=== PATIENT | female | born 1960 | race Caucasian/White ===

== ENCOUNTER 2019-04-10 09:02 | Observation (INO) | payer OTHER ==
[~2019-04-10] VITALS: Ht 165.1 cm; Wt 87.0 kg
[2019-04-10] MEDS ORDERED: ASPIRIN 81 MG TAB PO STA (09:15)
[2019-04-10] MEDS ORDERED: NITROGLYCERIN 2% 1 GM OINT PKT TD STA (09:15)
[2019-04-10] MEDS ORDERED: NITROGLYCERIN (SL) 0.4 MG TAB SL PRN ×2 (09:30→15:00)
[2019-04-10] MEDS ORDERED: GABA100C14 PO (10:12)
[2019-04-10] MEDS ORDERED: MELO-174 PO (10:12)
[2019-04-10] MEDS ORDERED: OMEP20CA16 PO (10:13)
[2019-04-10] MEDS ORDERED: DOCU250C58 PO (10:13)
[2019-04-10] MEDS ORDERED: LOSA1TAB22 PO (10:14)
[2019-04-10] MEDS ORDERED: METF500T24 PO (10:14)
[2019-04-10] MEDS ORDERED: LEVO50TA7 PO (10:14)
[2019-04-10] MEDS ORDERED: ATOR40TA68 PO (10:15)
[2019-04-10] MEDS ORDERED: CALC-133 PO (10:16)
[2019-04-10] MEDS ORDERED: ONDANSETRON 4 MG INJ IV PRN (12:00)
[2019-04-10] MEDS ORDERED: ACETAMINOPHEN 325 MG TAB PO PRN ×2 (12:00→15:00)
[2019-04-10 13:30] VITALS: BP 123/67; PULSE 75; RESP 20
[2019-04-10 13:54] VITALS: PULSE 72
--- NOTE | 2019-04-10 14:13 | ERD ---
ER Documentation Chief Complaint Chief Complaint "heart pain" since last night HPI Patient is a 59-year-old female with hypertension and diabetes who presents with "heart pain". Please note an Kittitian cigarette package examiner was used for the entire history and physical exam. The patient said that she started last night with chest pain at 11 PM. It was a sharp pain around her heart area she says. She tried valerian root. The pain comes and goes. Now she describes it as a burning pain. Upon review of old medical records this is the patient's first visit to the emergency department. ROS All systems reviewed and are negative except as per history of present illness. Medications Home Meds Reported Medications Calcium Carbonate/Vitamin D3 (Oyster Shell Calcium +D Tablet) 1 Each Tablet, 1 EACH PO BID, TAB 04/10/19 Atorvastatin* (Atorvastatin*) 40 Mg Tablet, 40 MG PO QHS, #30 TAB 04/10/19 Losartan-Hydrochlorothiazide (Losartan-HCTZ) 50-12.5 Mg Tab, 1 TAB PO DAILY, TAB 04/10/19 Metformin Hcl* (Metformin Hcl*) 500 Mg Tablet, 500 MG PO WITH BREAKFAST, #30 TAB 04/10/19 Levothyroxine Sodium* (Levothyroxine Sodium*) 50 Mcg Tablet, 50 MCG PO BEFORE BREAKFAST, #30 TAB 04/10/19 Docusate Sodium* (Colace*) 250 Mg Capsule, 250 MG PO DAILY, #30 CAP 04/10/19 Omeprazole* (Omeprazole*) 20 Mg Capsule.dr, 20 MG PO DAILY, #30 CAP 04/10/19 Meloxicam* (Mobic*) 7.5 Mg Tab, 7.5 MG PO DAILY, #30 TAB 04/10/19 Gabapentin* (Gabapentin*) 100 Mg Capsule, 100 MG PO DAILY, #90 CAP 04/10/19 Allergies Allergies: Coded Allergies: No Known Allergy (Unverified , 04/10/19) PMhx/Soc Hx Cardiac Disorders: Yes (HTN) Hx Miscellaneous Medical Probl: Yes (DM) Hx Alcohol Use: No Hx Substance Use: No Hx Tobacco Use: No Smoking Status: Never smoker FmHx Family History: coronary disease Physical Exam Vitals Vital Signs Date Temp Pulse Resp B/P (MAP) Pulse Ox O2 O2 Flow FiO2 Time Delivery Rate 04/10/19 72 14 122/82 95 Room Air 11:00 (95) 6/2/19 73 16 133/82 99 Room Air 10:00 (99) 04/10/19 98.1 75 15 126/86 100 Room Air 09:20 (99) 04/10/19 97.4 72 18 142/64 99 09:08 (90) Physical Exam Const: No acute distress Head: Atraumatic Eyes: Normal Conjunctiva ENT: Normal External Ears, Nose and Mouth. Neck: Full range of motion. No meningismus. Resp: Clear to auscultation bilaterally Cardio: Regular rate and rhythm, no murmurs Abd: Soft, non tender, non distended. Normal bowel sounds Skin: No petechiae or rashes Back: No midline or flank tenderness Ext: No cyanosis, or edema Neur: Awake and alert Psych: Normal Mood and Affect Result Diagram: 04/10/19 0945 04/10/19 0945 Results 24 hrs Laboratory Tests Test 04/10/19 09:45 White Blood Count 5.6 10^3/ul Red Blood Count 4.67 10^6/ul Hemoglobin 12.8 g/dl Hematocrit 39.6 % Mean Corpuscular Volume 84.8 fl Mean Corpuscular Hemoglobin 27.4 pg Mean Corpuscular Hemoglobin Concent 32.3 g/dl Red Cell Distribution Width 12.7 % Platelet Count 243 10^3/UL Mean Platelet Volume 10.0 fl Immature Granulocytes % 0.200 % Neutrophils % 47.1 % Lymphocytes % 44.4 % Monocytes % 6.1 % Eosinophils % 1.8 % Basophils % 0.4 % Nucleated Red Blood Cells % 0.0 /100WBC Immature Granulocytes # 0.010 10^3/ul Neutrophils # 2.6 10^3/ul Lymphocytes # 2.5 10^3/ul Monocytes # 0.3 10^3/ul Eosinophils # 0.1 10^3/ul Basophils # 0.0 10^3/ul Nucleated Red Blood Cells # 0.0 10^3/ul Sodium Level 141 mmol/L Potassium Level 4.6 mmol/L Chloride Level 105 mmol/L Carbon Dioxide Level 27 mmol/L Anion Gap 9 Blood Urea Nitrogen 10 mg/dl Creatinine 0.65 mg/dl Est Glomerular Filtrat Rate mL/min > 60 mL/min Glucose Level 112 mg/dl Calcium Level 9.6 mg/dl Troponin I < 0.012 ng/ml Current Medications Medications Dose Sig/Kiersten Start Time Status Last (Trade) Ordered Route PRN Stop Time Admin Dose Reason Admin Aspirin 162 mg ONCE STAT 04/10/19 DC 04/10/19 (Aspirin) PO 09:15 04/10/19 09:30 09:17 1 inch ONCE STAT 04/10/19 DC 04/10/19 Nitroglycerin TD 09:15 04/10/19 09:31 09:17 (Nitroglyceri n 2% Oint) 1 tab Q5M UP TO 3 04/10/19 Nitroglycerin DOSES PRN 09:30 SL .CHEST (Nitroglyceri PAIN n (Sl Tab) 0.4 Mg) Procedures/MDM EKG read by me: Rate/Rhythm: Regular rate and rhythm at a normal rate Intervals: Normal Impression: No evidence of ischemia or arrhythmia Chest x-ray read by radiology. Patient is a 59-year-old female with hypertension and diabetes who presents with chest pain. I am concerned for possible acute coronary syndrome. I doubt pneumonia, pneumothorax, pulmonary embolism, or aortic dissection. The patient will be admitted to the care of Dr. Rothman given her insurance. The patient was given aspirin and nitroglycerin empirically. Departure Diagnosis: Primary Impression: Chest pain Chest pain type: unspecified Qualified Codes: R07.9 - Chest pain, unspecified Condition: Stable AYLIN LEDBETTER MD Apr 10, 2019 14:13
[2019-04-10 15:00] VITALS: Ht 165.1 cm; Wt 87.0 kg
[2019-04-10] MEDS ORDERED: NACL 0.9% 3 ML SYG IV SCH (15:00)
[2019-04-10] MEDS ORDERED: ONDANSETRON 4 MG TAB PO PRN (15:00)
--- NOTE | 2019-04-10 15:25 | HP ---
Date/Time of Note Date/Time of Note DATE: 04/10/19 TIME: 15:02 Assessment/Plan VTE Prophylaxis SCD applied (from Nsg): Yes Pharmacological prophylaxis: LMWH Lines/Catheters IV Catheter Type (from Nrsg): Saline Lock Assessment/Plan Assessment/Plan 1. 59yo woman with diabetes who had epigastric pain the last ten days, and abrupt onset of sharp left chest pain last night. Now pain-free. She had moderate dyspnea last night, "unable to speak." On exam, she had moderate chest wall tenderness over the left chondrosternal joints. But no squeeze tenderness of the ribcage. EKG showed NSR with no ischemia. Negative troponin. Likely a combination of acid reflux and costochondritis. But she has chest wall tenderness consistent with costochondritis. Nonetheless, being post-menopausal and with her cardiac factors, I think proceeding to rule out myocardial ischemia is very important 2. Hypertension 3. Diabetes 4. Frequent epistaxis 5. Frequent headaches 6. Urinary frequency 7. Unexplained low back pain * Admit to observation telemetry * Serial troponins * Check D-dimer/ESR * Famotidine for possible GERD and GI prophylaxis * Continue meloxicam for possible costochondritis * Continue diabetes meds, and implement qAC and qHS Accuchecks * Diabetic diet; NPO after midnight except for medications * A1c, lipids, TSH pending * Cherelle scan ordered for tomorrow morning * LMWH heparin for DVT prevention * Disposition: home with her family once evaluation is done Raquel Rothman MD PhD [facility] [phone] Result Diagram: 04/10/19 0945 04/10/19 0945 Results 24hrs Laboratory Tests Test 04/10/19 09:45 04/10/19 13:36 White Blood Count 5.6 Red Blood Count 4.67 Hemoglobin 12.8 Hematocrit 39.6 Mean Corpuscular Volume 84.8 Mean Corpuscular Hemoglobin 27.4 L Mean Corpuscular Hemoglobin Concent 32.3 Red Cell Distribution Width 12.7 Platelet Count 243 Mean Platelet Volume 10.0 Immature Granulocytes % 0.200 Neutrophils % 47.1 Lymphocytes % 44.4 Monocytes % 6.1 Eosinophils % 1.8 Basophils % 0.4 Nucleated Red Blood Cells % 0.0 Immature Granulocytes # 0.010 Neutrophils # 2.6 Lymphocytes # 2.5 Monocytes # 0.3 Eosinophils # 0.1 Basophils # 0.0 Nucleated Red Blood Cells # 0.0 Sodium Level 141 Potassium Level 4.6 Chloride Level 105 Carbon Dioxide Level 27 Anion Gap 9 Blood Urea Nitrogen 10 Creatinine 0.65 Est Glomerular Filtrat Rate mL/min > 60 Glucose Level 112 Calcium Level 9.6 Troponin I < 0.012 Bedside Glucose 95 HPI/ROS Admit Date/Time Admit Date/Time Apr 10, 2019 at 11:51 Hx of Present Illness cc: Chest pain HPI: 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 I had the benefit of Sammarinese translation by one of our nurses. The patient has diabetes and hypertension, but no previous cardiac disease history. Ten days ago she began having burning in the epigastric area, unrelated to eating. About midnight last night she developed sharp chest pain in the left chest. She tried taking some valerian root, an Sammarinese remedy for chest pain, but without benefit. She was "unable to speak," feeling short of breath but without nausea or radiation to arms or face. She had higher blood pressure than usual, and this brought on a predictable headache. Medical history: 1. Hysterectomy 2. Right oophorectomy 3. Renal stent 4. Hypertension 5. Hypothyroidism 6. Asthma ROS No diplopia or visual change, weakness, numbness (only occasionally in her feet), falling, loose stool or constipation, dysuria or urethritis symptoms. She does have very frequent urination, sometimes every 15 minutes. Occasional palpitations, with either rapid or slow heart beat. She has had episdoes of dizziness, and even passing out. Her stomach pains are crampy, typically lasting only about two minutes. She has had no respiratory symptoms the last ten days suggestive of infection (eg. cough, fever). She does have frequent low back pain. Frequent nosebleeds. PMH/Family/Social Past Medical History Medications Current Medications Nitroglycerin (Nitroglycerin (Sl Tab) 0.4 Mg) 1 tab Q5M UP TO 3 DOSES PRN SL .CHEST PAIN; Start 04/10/19 at 09:30 Ondansetron HCl (Zofran Inj) 4 mg ER BRIDGE PRN IV NAUSEA/VOMITING; Start 04/10/19 at 12:00; Stop 04/11/19 at 11:59 Acetaminophen (Tylenol Tab) 650 mg ER BRIDGE PRN PO .MILD PAIN 1-3 OR TEMP; Start 04/10/19 at 12:00; Stop 04/11/19 at 11:59 Atorvastatin Calcium (Lipitor) 40 mg QHS PO ; Start 04/10/19 at 21:00; Status UNV Calcium/Vitamin D (Oyster Shell/ Vit-D (500/200)) 1 tab BID PO ; Start 04/10/19 at 15:00; Status UNV Docusate Sodium (Colace) 250 mg DAILY PO ; Start 04/10/19 at 15:00; Status UNV Gabapentin (Neurontin) 100 mg DAILY PO ; Start 04/10/19 at 15:00; Status UNV Levothyroxine Sodium (Synthroid) 50 mcg BEFORE BREAKFAST PO ; Start 04/11/19 at 07:00; Status UNV Meloxicam (Mobic) 7.5 mg DAILY PO ; Start 04/10/19 at 15:00; Status UNV Metformin HCl (Glucophage) 500 mg WITH BREAKFAST PO ; Start 04/11/19 at 08:00; Status UNV Miscellaneous Information 1 tab DAILY PO ; Start 04/10/19 at 15:00; Status UNV Diagnostic Test (Pha) (Accu-Chek) 1 ea AC MEALS AND BEDTIME XX ; Start 04/10/19 at 17:30; Status UNV IV Flush (NS 3 ml) 3 ml PER PROTOCOL IV ; Start 04/10/19 at 15:00; Status UNV Ondansetron HCl (Zofran Tab) 4 mg Q6H PRN PO NAUSEA/VOMITING; Start 04/10/19 at 15:00; Status UNV Aspirin (Aspirin) 81 mg DAILY PO ; Start 04/11/19 at 09:00; Status UNV Nitroglycerin (Nitroglycerin (Sl Tab) 0.4 Mg) 1 tab Q5M PRN SL .CHEST PAIN; Start 04/10/19 at 15:00; Status UNV Acetaminophen (Tylenol Tab) 650 mg Q6H PRN PO .PAIN 1-3 OR TEMP; Start 04/10/19 at 15:00; Status UNV Famotidine (Pepcid) 20 mg Q12 PO ; Start 04/10/19 at 15:00; Status UNV Enoxaparin Sodium (Lovenox) 40 mg DAILY SC ; Start 04/10/19 at 15:00; Status UNV Coded Allergies: No Known Allergy (Unverified , 04/10/19) Family History Significant Family History: heart disease (Mother in her 80s of heart disease; none in her siblings or children) Social History Lives with her , son, and [id number] Alcohol Use: none Smoking Status: Never smoker Exam/Review of Systems Vital Signs Vitals Vital Signs Date Temp Pulse Resp B/P (MAP) Pulse Ox O2 O2 Flow FiO2 Time Delivery Rate 04/10/19 72 13:54 04/10/19 97.6 20 123/67 94 Room Air 13:30 (85) Exam Exam Gen: Mildly anxious, but breathing comfortably on room air HEENT: PERRL, EOMI, no scleral icterus or conjunctivitis Neck: No JVD, thyomegaly, or adenopathy CVS: Regular rhythm, normal rate, no murmur, good peripheral perfusion, no edema Chest: Clear bilaterally. Moderate tenderness over the left chondrosternal joints Abd: Large, soft, non-tender, no HSM MSk: No arthritis or cyanosis Neuro: Alert, oriented, CN/motor intact. Mildly decreased light-touch sensation decreased on the feet. 1+ symmetric patellar reflexes Skin: No rash SAE ROTHMAN M.D. Apr 10, 2019 15:13
[2019-04-10] MEDS ORDERED: LOSARTAN 50 MG TAB PO SCH (15:30)
[2019-04-10 15:35] VITALS: BP 110/64; PULSE 80; RESP 20
[2019-04-10] MEDS: CALCIUM/VITAMIN D (500/200) TAB PO SCH ×2 (15:49→21:47)
[2019-04-10] MEDS: DOCUSATE SODIUM 250 MG CAP PO SCH (15:49)
[2019-04-10] MEDS: MELOXICAM 7.5 MG TAB PO SCH (15:49)
[2019-04-10] MEDS: FAMOTIDINE 20 MG TAB PO SCH ×2 (15:50→21:39)
[2019-04-10] MEDS: GABAPENTIN 100 MG CAP PO SCH (15:51)
[2019-04-10] MEDS: LOSARTAN 50 MG TAB PO SCH (15:52)
[2019-04-10] MEDS: ENOXAPARIN 40 MG/0.4 ML SYG SC SCH (15:57)
[2019-04-10 16:08] VITALS: PULSE 84
[2019-04-10] MEDS: ACCU-CHEK XX SCH ×2 (17:30→21:48)
[2019-04-10 20:00] VITALS: PULSE 77
[2019-04-10 20:37] VITALS: BP 122/64; PULSE 78; RESP 18
[2019-04-10] MEDS ORDERED: ATORVASTATIN 40 MG TAB PO SCH (21:00)
[2019-04-11] VITALS (11 sets, daily range): BP systolic 112–125; BP diastolic 66–73; PULSE 8–88; RESP 16–20
[2019-04-11] MEDS: ACCU-CHEK XX SCH ×3 (06:57→16:50)
[2019-04-11] MEDS ORDERED: LEVOTHYROXINE 50 MCG TAB PO SCH (07:00)
[2019-04-11] MEDS ORDERED: metFORMIN 500 MG TAB PO SCH (08:00)
[2019-04-11] MEDS: MELOXICAM 7.5 MG TAB PO SCH (08:30)
[2019-04-11] MEDS: CALCIUM/VITAMIN D (500/200) TAB PO SCH (08:30)
[2019-04-11] MEDS: LOSARTAN 50 MG TAB PO SCH (08:30)
[2019-04-11] MEDS: DOCUSATE SODIUM 250 MG CAP PO SCH (08:31)
[2019-04-11] MEDS: GABAPENTIN 100 MG CAP PO SCH (08:31)
[2019-04-11] MEDS: FAMOTIDINE 20 MG TAB PO SCH (08:31)
[2019-04-11] MEDS: ENOXAPARIN 40 MG/0.4 ML SYG SC SCH (08:32)
[2019-04-11] MEDS ORDERED: HYDROCHLOROTHIAZIDE 25 MG TAB PO SCH (09:00)
[2019-04-11] MEDS ORDERED: ASPIRIN 81 MG TAB PO SCH (09:00)
[2019-04-11] MEDS ORDERED: REGADENOSON 0.4 MG/5 ML SYG ONE ×2 (12:26→12:43)
--- NOTE | 2019-04-11 13:34 | RADRPT ---
Echocardiogram Report Patient Name: Adela JAY ID: [id number] : 1960 (59y 2m)Study Date: 04/11/2019 11:51:59 AM Gender: FAccession #: [id number] Tech: EddiePerfecto Evangelista [facility] Location: [facility] Ref.Physician: DARYL GUTIERREZ Height(Cm): BSA: Weight(Kg): Quality: AdequateOrder Physician: DARYL GUTIERREZ Account #: Procedures: Echocardiographic Report: Transthoracic echocardiogram with complete 2D, M-Mode, and doppler examination. Indications: Chest Pain. Measurements: 2D/M Mode Doppler Measurement Value Normal Range Measurement Value Normal Range LVIDd 2D 3.5 [ 3.8 - 5.2 ] cm AV Peak Jeffry 0.9 [ 100.0 - 170.0 ] cm/sec LVIDs 2D 2.1 [ 2.2 - 3.5 ] cm AV Peak PG 4.0 [ 2.0 - 9.0 ] mmHg LVPWd 2D 1.0 [ 0.6 - 0.9 ] cm LVOT Peak Jeffry 0.9 [ 70.0 - 110.0 ] cm/sec IVSd 2D 1.2 [ 0.6 - 0.9 ] cm LVOT Peak PG 4.0 [ 2.0 - 6.0 ] mmHg AoR Diam 2D 2.8 [ 2.3 - 3.1 ] cm MV E Peak Jeffry 0.5 [ 60.0 - 130.0 ] cm/sec EDV 2D 49.8 [ 46.0 - 106.0 ] ml MV A Peak Jeffry 0.6 [ 100.0 - 120.0 ] cm/sec ESV 2D 13.7 [ 14.0 - 42.0 ] ml MV E/A 0.8 [ 0.8 - 1.5 ] ratio EF 2D 72.5 [ 54.0 - 74.0 ] percent MV Decel Time 180 [ 104 - 258 ] msec LA Dimen 2D 2.9 [ 2.7 - 3.8 ] cm Lat E` Jeffry 0.1 [ 10.0 - 15.0 ] cm/sec Lateral E/E` 9.1 [ 1.0 - 2.0 ] ratio MV E/A 0.8 [ 0.8 - 1.5 ] ratio Findings: Left Ventricle: Normal left ventricular systolic function. Normal left ventricular cavity size. Mild concentric left ventricular hypertrophy. Ejection fraction is visually estimated at 65 %. Tissue Doppler/Mitral Doppler indices are consistent with impaired relaxation (Stage I diastolic dysfunction). Right Ventricle: Normal right ventricular size. Normal right ventricular systolic function. Left Atrium: The left atrium is normal in size. Right Atrium: The right atrium is normal in size. Mitral Valve: Normal appearance and function of the mitral valve with trace physiologic regurgitation. Aortic Valve: Normal appearance of the aortic valve. No significant aortic stenosis or insufficiency. Tricuspid Valve: Normal appearance and function of the tricuspid valve with trace physiologic regurgitation. Pulmonic Valve: Normal pulmonic valve appearance. Pericardium: Normal pericardium with no significant pericardial effusion. Aorta: Normal aortic root. IVC: Normal size and normal respiratory collapse consistent with normal right atrial pressure. Conclusions: Normal left ventricular systolic function. Normal left ventricular cavity size. Mild concentric left ventricular hypertrophy. Ejection fraction is visually estimated at 65 %. Tissue Doppler/Mitral Doppler indices are consistent with impaired relaxation (Stage I diastolic dysfunction). Normal right ventricular size. Normal right ventricular systolic function. The left atrium is normal in size. The right atrium is normal in size. No significant valvular stenosis or regurgitation seen. Normal pericardium with no significant pericardial effusion. Electronically Signed By: Daryl Gutierrez 2019-04-11 13:33:41 PDT
--- NOTE | 2019-04-11 15:15 | CONS ---
Assessment/Plan Assessment/Plan Hospital Course (Demo Recall) Chest pain Shortness of breath Preserved left ventricular ejection fraction Hypertension Diabetes -Patient with reducible chest discomfort. Patient also with shortness of breath which has been exertional times over the past 1 to 2 months. -Serial cardiac enzymes are negative, ECG with no significant ischemic abnormalities, echocardiogram with preserved left ventricular ejection fraction with no significant valvular abnormalities -Patient plan for nuclear cardiac perfusion study today Consultation Date/Type/Reason Admit Date/Time Apr 10, 2019 at 11:51 Type of Consult Cardiology Reason for Consultation Chest pain Date/Time of Note DATE: 04/11/19 TIME: 15:12 Hx of Present Illness This is a 59-year-old female with past medical history of hypertension, borderline diabetes who presents with chest pain and shortness of breath. Chest pain is worse with palpation of the chest wall and movement of her arms. Patient also with shortness of breath off and on over the past 1 to 2 months. Symptoms at times are worse with exertion at times at rest. Denies any dizzines s or lightheadedness. Symptoms have since improved since her admission to the hospital. 12 point review of systems was performed with all pertinent positives and negatives mentioned above and all else is negative Past Medical History Medical History: diabetes, high cholesterol, hypertension Home Meds Reported Medications Calcium Carbonate/Vitamin D3 (Oyster Shell Calcium +D Tablet) 1 Each Tablet, 1 EACH PO BID, TAB 04/10/19 Atorvastatin* (Atorvastatin*) 40 Mg Tablet, 40 MG PO QHS, #30 TAB 04/10/19 Losartan-Hydrochlorothiazide (Losartan-HCTZ) 50-12.5 Mg Tab, 1 TAB PO DAILY, TAB 04/10/19 Metformin Hcl* (Metformin Hcl*) 500 Mg Tablet, 500 MG PO WITH BREAKFAST, #30 TAB 04/10/19 Levothyroxine Sodium* (Levothyroxine Sodium*) 50 Mcg Tablet, 50 MCG PO BEFORE BREAKFAST, #30 TAB 04/10/19 Docusate Sodium* (Colace*) 250 Mg Capsule, 250 MG PO DAILY, #30 CAP 04/10/19 Omeprazole* (Omeprazole*) 20 Mg Capsule.dr, 20 MG PO DAILY, #30 CAP 04/10/19 Meloxicam* (Mobic*) 7.5 Mg Tab, 7.5 MG PO DAILY, #30 TAB 04/10/19 Gabapentin* (Gabapentin*) 100 Mg Capsule, 100 MG PO DAILY, #90 CAP 04/10/19 Medications Current Medications Atorvastatin Calcium (Lipitor) 40 mg QHS PO Last administered on 04/10/19 21:39; Admin Dose 40 MG; Start 04/10/19 at 21:00 Calcium/Vitamin D (Oyster Shell/ Vit-D (500/200)) 1 tab BID PO Last administered on 04/11/19 08:30; Admin Dose 1 TAB; Start 04/10/19 at 15:00 Docusate Sodium (Colace) 250 mg DAILY PO Last administered on 04/11/19 08:31; Admin Dose 250 MG; Start 04/10/19 at 15:00 Gabapentin (Neurontin) 100 mg DAILY PO Last administered on 04/11/19 08:31; Admin Dose 100 MG; Start 04/10/19 at 15:00 Levothyroxine Sodium (Synthroid) 50 mcg BEFORE BREAKFAST PO Last administered on 04/11/19 06:51; Admin Dose 50 MCG; Start 04/11/19 at 07:00 Meloxicam (Mobic) 7.5 mg DAILY PO Last administered on 04/11/19 08:30; Admin D ose 7.5 MG; Start 04/10/19 at 15:00 Metformin HCl (Glucophage) 500 mg WITH BREAKFAST PO ; Start 04/11/19 at 08:00 Diagnostic Test (Pha) (Accu-Chek) 1 ea AC MEALS AND BEDTIME XX Last administered on 04/11/19 11:21; Admin Dose 1 EA; Start 04/10/19 at 17:30 IV Flush (NS 3 ml) 3 ml PER PROTOCOL IV ; Start 04/10/19 at 15:00 Ondansetron HCl (Zofran Tab) 4 mg Q6H PRN PO NAUSEA/VOMITING; Start 04/10/19 at 15:00 Aspirin (Aspirin) 81 mg DAILY PO Last administered on 04/11/19 08:30; Admin Dose 81 MG; Start 04/11/19 at 09:00 Nitroglycerin (Nitroglycerin (Sl Tab) 0.4 Mg) 1 tab Q5M PRN SL .CHEST PAIN; Start 04/10/19 at 15:00 Acetaminophen (Tylenol Tab) 650 mg Q6H PRN PO .PAIN 1-3 OR TEMP Last administered on 6/2/19at 15:50; Admin Dose 650 MG; Start 04/10/19 at 15:00 Famotidine (Pepcid) 20 mg Q12 PO Last administered on 04/11/19at 08:31; Admin Dose 20 MG; Start 04/10/19 at 15:00 Enoxaparin Sodium (Lovenox) 40 mg DAILY SC Last administered on 04/11/19at 08:32; Admin Dose 40 MG; Start 04/10/19 at 15:00 Hydrochlorothiazide (Hydrochlorothiazide) 25 mg DAILY PO Last administered on 04/11/19at 08:30; Admin Dose 25 MG; Start 04/11/19 at 09:00 Losartan Potassium (Cozaar) 50 mg DAILY PO Last administered on 04/11/19at 08:30; Admin Dose 50 MG; Start 04/10/19 at 15:30 Allergies: Coded Allergies: No Known Allergy (Unverified , 04/10/19) Social History Alcohol Use: none Smoking Status: Never smoker Exam/Review of Systems Vital Signs Vitals Vital Signs Date Temp Pulse Resp B/P (MAP) Pulse Ox O2 O2 Flow FiO2 Time Delivery Rate 04/11/19 97.8 85 20 118/71 97 15:03 (87) 04/10/19 Room Air 15:35 Intake and Output 04/10/19 04/10/19 04/11/19 1515:00 23:00 07:00 IntakeIntake Total 1000 ml 680 ml BalanceBalance 1000 ml 680 ml Exam Exam No apparent distress Constitutional: alert, oriented Head: normocephalic Respiratory: clear to auscultation, normal air movement Cardiovascular: regular rate and rhythm (S1-S2 heard, no murmurs appreciated) Gastrointestinal: soft, non-tender, bowel sounds Extremities: other (No significant edema) Labs Result Diagram: 04/11/19 0454 04/11/19 0454 Results 24hrs Laboratory Tests Test 04/10/19 15:31 04/10/19 17:16 04/10/19 21:07 04/10/19 21:41 D-Dimer < 220.00 D-Dimer Comment Hemoglobin A1c 6.1 H Creatine Kinase 77 68 Creatine Kinase Index 0.7 0.8 Creatinine Kinase MB 0.56 0.51 (Mass) Troponin I < 0.012 < 0.012 Thyroid Stimulating 7.590 H Hormone (TSH) Bedside Glucose 225 H 112 Test 04/11/19 04:40 04/11/19 04:54 04/11/19 06:52 04/11/19 08:28 Urine Color STRAW Urine Clarity CLEAR Urine pH 6.0 Urine Specific Hume 1.010 Urine Ketones NEGATIVE Urine Nitrite NEGATIVE Urine Bilirubin NEGATIVE Urine Urobilinogen NEGATIVE Urine Leukocyte Esterase NEGATIVE Urine Microscopic RBC 5 Urine Microscopic WBC 0 Urine Calcium Oxalate MANY A Crystals Urine Bacteria FEW A Urine Hemoglobin 2+ H Urine Glucose NEGATIVE Urine Total Protein NEGATIVE White Blood Count 4.7 L Red Blood Count 4.50 Hemoglobin 12.1 Hematocrit 38.1 Mean Corpuscular Volume 84.7 Mean Corpuscular 26.9 L Hemoglobin Mean Corpuscular 31.8 L Hemoglobin Concent Red Cell Distribution 12.6 Width Platelet Count 233 Mean Platelet Volume 9.9 Immature Granulocytes % 0.000 L Neutrophils % 38.7 L Lymphocytes % 51.6 H Monocytes % 6.8 Eosinophils % 2.5 Basophils % 0.4 Nucleated Red Blood 0.0 Cells % Immature Granulocytes # 0.000 Neutrophils # 1.8 Lymphocytes # 2.4 Monocytes # 0.3 Eosinophils # 0.1 Basophils # 0.0 Nucleated Red Blood 0.0 Cells # Sodium Level 142 Potassium Level 4.2 Chloride Level 104 Carbon Dioxide Level 30 Anion Gap 8 Blood Urea Nitrogen 13 Creatinine 0.82 Est Glomerular Filtrat > 60 Rate mL/min Glucose Level 126 Calcium Level 9.6 Triglycerides Level 266 H Cholesterol Level 231 H LDL Cholesterol, 137 Calculated HDL Cholesterol 41 Cholesterol/HDL Ratio 5.6 Bedside Glucose 134 132 Test 04/11/19 11:21 Bedside Glucose 116 Imaging Imaging ECG sinus rhythm, normal QRS duration, nonspecific ST abnormalities Medications Medications Current Medications Atorvastatin Calcium (Lipitor) 40 mg QHS PO Last administered on 04/10/19at 21:39; Admin Dose 40 MG; Start 04/10/19 at 21:00 Calcium/Vitamin D (Oyster Shell/ Vit-D (500/200)) 1 tab BID PO Last administered on 04/11/19at 08:30; Admin Dose 1 TAB; Start 04/10/19 at 15:00 Docusate Sodium (Colace) 250 mg DAILY PO Last administered on 04/11/19at 08:31; Admin Dose 250 MG; Start 04/10/19 at 15:00 Gabapentin (Neurontin) 100 mg DAILY PO Last administered on 04/11/19 08:31; Admin Dose 100 MG; Start 04/10/19 at 15:00 Levothyroxine Sodium (Synthroid) 50 mcg BEFORE BREAKFAST PO Last administered on 04/11/19 06:51; Admin Dose 50 MCG; Start 04/11/19 at 07:00 Meloxicam (Mobic) 7.5 mg DAILY PO Last administered on 04/11/19 08:30; Admin Dose 7.5 MG; Start 04/10/19 at 15:00 Metformin HCl (Glucophage) 500 mg WITH BREAKFAST PO ; Start 04/11/19 at 08:00 Diagnostic Test (Pha) (Accu-Chek) 1 ea AC MEALS AND BEDTIME XX Last administered on 04/11/19 11:21; Admin Dose 1 EA; Start 04/10/19 at 17:30 IV Flush (NS 3 ml) 3 ml PER PROTOCOL IV ; Start 04/10/19 at 15:00 Ondansetron HCl (Zofran Tab) 4 mg Q6H PRN PO NAUSEA/VOMITING; Start 04/10/19 at 15:00 Aspirin (Aspirin) 81 mg DAILY PO Last administered on 04/11/19 08:30; Admin Dose 81 MG; Start 04/11/19 at 09:00 Nitroglycerin (Nitroglycerin (Sl Tab) 0.4 Mg) 1 tab Q5M PRN SL .CHEST PAIN; Start 04/10/19 at 15:00 Acetaminophen (Tylenol Tab) 650 mg Q6H PRN PO .PAIN 1-3 OR TEMP Last administered on 04/10/19 15:50; Admin Dose 650 MG; Start 04/10/19 at 15:00 Famotidine (Pepcid) 20 mg Q12 PO Last administered on 04/11/19 08:31; Admin Dose 20 MG; Start 04/10/19 at 15:00 Enoxaparin Sodium (Lovenox) 40 mg DAILY SC Last administered on 04/11/19 08:32; Admin Dose 40 MG; Start 04/10/19 at 15:00 Hydrochlorothiazide (Hydrochlorothiazide) 25 mg DAILY PO Last administered on 04/11/19 08:30; Admin Dose 25 MG; Start 04/11/19 at 09:00 Losartan Potassium (Cozaar) 50 mg DAILY PO Last administered on 6/3/19at 08:30; Admin Dose 50 MG; Start 04/10/19 at 15:30 Daryl Gutierrez DO Apr 11, 2019 15:15
--- NOTE | 2019-04-11 15:52 | PDOCDIS ---
Discharge Instructions CONDITION [id number] Patient Condition: [id number] Good HOME CARE INSTRUCTIONS: [id number] Diet Instructions: [id number] FOLLOW UP/APPOINTMENTS Follow-up Plan pcp 1 week JOSE MURILLO MD Apr 11, 2019 15:52
== END 2019-04-11 18:33 | disposition home or self-care (01) ==
LOC: E/R 09:02 → 6WM 11:51
PROVIDERS: ADMIT Internal Medicine; ATTEND Internal Medicine
DX: R07.9 Chest pain, unspecified (principal); I10 Essential (primary) hypertension; E11.9 Type 2 diabetes mellitus without complications; E03.9 Hypothyroidism, unspecified; J45.909 Unspecified asthma, uncomplicated; Z79.84 Long term (current) use of oral hypoglycemic drugs
CPT/HCPCS: 36415; 71045; 78452; 80048; 80061; 81001; 82550; 82553; 82962; 83036; 84443; 84484; 85025; 85378; 93005; 93017; 93306; A9500; A9505; J1650; J2785; Z7500; Z7502; Z7610; G0378